=== PATIENT | male | born 1960 | race Caucasian/White ===

== ENCOUNTER 2019-05-29 06:07 | Inpatient (IN) ==
[2019-05-29] MEDS ORDERED: CeFAZolin Syr 2,000MG/20 ML 2,000 MG/20 ML SYRINGE IVPB ONE (06:28)
[2019-05-29] MEDS ORDERED: Ringers Solution, Lactated 1,000 ML IVC SCH ×2 (06:30→12:16)
[2019-05-29] MEDS ORDERED: *HR* Propofol 200 MG/20 ML VIAL IVP ONE ×2 (07:05→07:08)
[2019-05-29] MEDS ORDERED: *HR* Succinylcholine 200 MG/10 ML VIAL IVP ONE (07:11)
[2019-05-29] MEDS ORDERED: Dexamethasone 4 MG/ML VIAL ONE (07:11)
[2019-05-29] MEDS ORDERED: Lidocaine -MPF 2% 2 ML VIAL ONE ×2 (07:11→10:29)
[2019-05-29] MEDS ORDERED: *HR* Rocuronium Bromide 50 MG/5 ML VIAL ONE (07:11)
[2019-05-29] MEDS ORDERED: Ondansetron 4 MG/2 ML VIAL ONE (07:11)
[2019-05-29] MEDS ORDERED: Scopolamine Patch 1.5 MG PATCH.TD72 TD ONE (07:16)
[2019-05-29] MEDS ORDERED: *HR* HYDROmorphone (PF) 1 MG/ML SYRINGE IVP PRN (07:17)
[2019-05-29] MEDS ORDERED: Ondansetron 4 MG/2 ML VIAL IVP ONE (07:17)
[2019-05-29] MEDS ORDERED: *HR* Promethazine 25 MG/ML VIAL IVP PRN (07:17)
[2019-05-29] MEDS ORDERED: *HR* OxyCODONE Immed Rel 5 MG TABLET PO PRN (07:17)
[2019-05-29] MEDS ORDERED: Propofol 500 MG/50 ML INFUS..BTL ONE (07:39)
[2019-05-29] MEDS ORDERED: *HR* Remifentanil 1 MG VIAL IVP ONE ×2 (07:41)
[2019-05-29] MEDS ORDERED: Bacitracin 50,000 UNIT, Polymyxin B Sulfate 500,000 UNIT, Sodium Chloride IRRigation 1,... IR ONE (08:15)
[2019-05-29] MEDS ORDERED: *HR* FentaNYL (PF) 100 MCG/2 ML VIAL ONE (08:19)
[2019-05-29] MEDS ORDERED: *HR* Phenylephrine 10 MG/ML VIAL ONE (08:49)
[2019-05-29] MEDS ORDERED: *HR* HYDROMORPHONE 2 MG/ML VIAL ONE (10:40)
[2019-05-29] MEDS ORDERED: *HR* LORazepam 2 MG/ML VIAL IVP ONE (11:50)
[2019-05-29] MEDS ORDERED: Acetaminophen 325 MG TABLET PO PRN (12:16)
[2019-05-29] MEDS ORDERED: Naloxone 0.4 MG/ML INJ IVP PRN (12:16)
[2019-05-29] MEDS ORDERED: SUMAtriptan succinate 50 MG TABLET PO PRN (12:16)
[2019-05-29] MEDS ORDERED: [UNRECOGNIZED DRUG - OTHER] TP PRN (12:16)
[2019-05-29] MEDS ORDERED: Ondansetron 4 MG/2 ML VIAL IVP PRN (12:16)
[2019-05-29] MEDS ORDERED: traMADol 50 MG TABLET PO PRN (12:16)
[2019-05-29] MEDS: Budesonide/Formoterol 80/4.5 1 PUFF INH IH SCH ×2 (14:19→20:05)
[2019-05-29] MEDS: *HR* OxyCODONE Immed Rel 5 MG TABLET PO PRN ×2 (15:36→20:13)
[2019-05-29] MEDS: Gabapentin 400 MG CAPSULE PO SCH ×2 (15:36→20:13)
[2019-05-29] MEDS ORDERED: tiZANidine 4 MG TABLET PO PRN (16:26)
[2019-05-29] MEDS ORDERED: *HR* Methotrexate 2.5 MG TABLET PO SCH (17:00)
[2019-05-29] MEDS ORDERED: NON-FORMULARY MEDICATION 1 EACH EACH (Omega-3 Fatty Acids/Fish Oil [Eql Omega-3 Fish Oil 1 PO SCH (21:00)
[2019-05-29] MEDS: diazePAM 5 MG TABLET PO PRN (22:49)
[2019-05-29] MEDS: *HR* HYDROcodone/Acet 5/325 mg TABLET PO PRN (22:54)
[2019-05-30] MEDS: *HR* OxyCODONE Immed Rel 5 MG TABLET PO PRN (03:19)
[2019-05-30] MEDS: Gabapentin 400 MG CAPSULE PO SCH ×2 (08:04→15:21)
[2019-05-30] MEDS: *HR* HYDROcodone/Acet 5/325 mg TABLET PO PRN (08:06)
[2019-05-30] MEDS: diazePAM 5 MG TABLET PO PRN ×2 (08:09→16:35)
[2019-05-30] MEDS ORDERED: Lisinopril-HCTZ 20-12.5mg TABLET PO SCH (09:00)
[2019-05-30] MEDS ORDERED: Folic Acid 1 MG TABLET PO SCH (09:00)
[2019-05-30] MEDS ORDERED: Loratadine 10 MG TABLET PO SCH (09:00)
[2019-05-30] MEDS: Budesonide/Formoterol 80/4.5 1 PUFF INH IH SCH (11:14)
[2019-05-30 16:03] VITALS: BP 131/85
== END 2019-05-30 17:06 | disposition home or self-care (01) | DRG 321 ==
LOC: SAMDAY 06:07 → 3NENU 12:25
PROVIDERS: ADMIT Orthopaedic Surgery Orthopaedic Surgery of the Spine; ATTEND Orthopaedic Surgery Orthopaedic Surgery of the Spine